=== PATIENT | female | born 1955 | race American Indian/Alaskan Native ===

== ENCOUNTER 2021-11-14 11:30 | Emergency (ER) | payer SELFPAY ==
[2021-11-14 12:35] VITALS: BP 137/76
--- NOTE | 2021-11-14 13:44 | XRay Report ---
Left ankle-3 views Left foot-3 views INDICATION: ankle injury. COMPARISON: None available. IMPRESSION: No acute osseous abnormality in the ankle or foot. Normal alignment. There is moderate soft tissue swelling predominantly along the dorsum of the forefoot and midfoot with no soft tissue w ound identified. Mild scattered degenerative changes are present throughout the foot and ankle and t here is bulky enthesopathic change along the distal Achilles insertion at the calcaneus. Signer Name: Phil Harris MD Signed: 11/14/2021 1:39 PM Workstation Name: [id number]
--- NOTE | 2021-11-14 14:47 | Emergency Department Report ---
ED Lower Extremity HPI - General Chief Complaint: Extremity Injury, Lower Stated Complaint: LT FOOT PAIN Time Seen by Provider: 11/14/21 13:35 Source: patient Mode of arrival: Ambulatory Limitations: No Limitations - History of Present Illness Initial Comments: This is a 66-year-old female nontoxic, well nourished in appearance, no acute signs of distress presents to the ED with c/o of left ankle pain 1 day. Patient stated that she twisted it while walking. Patient denies any other injuries or trauma. Patient denies any numbness, tingling, fever, chills, nausea, vomiting, chest pain, shortness of breath, headache, stiff neck. Patient denies any joint swelling or joint redness. Patient denies decreased range of motion. Patient stated has decreased gait due to pain. Patient denies any allergies. MD Complaint: ankle injury -: days(s) Injury: Ankle: Left Severity: mild Severity scale (0 -10): 3 Improves With: immobilization Worsens With: weight bearing, movement, palpation Associated Symptoms: swelling, able to partially bear weight. denies: snap/pop sensation, numbness, tingling, unable to bear weight - Related Data Allergies Allergy/AdvReac Type Severity Reaction Status Date / Time No Known Allergies Allergy Verified 11/14/21 12:29 ED Review of Systems ROS: Stated complaint: LT FOOT PAIN Other details as noted in HPI Comment: All other systems reviewed and negative Constitutional: denies: chills, fever Eyes: denies: eye pain, eye discharge, vision change ENT: denies: ear pain, throat pain Respiratory: denies: cough, shortness of breath, wheezing Cardiovascular: denies: chest pain, palpitations Endocrine: no symptoms reported Gastrointestinal: denies: abdominal pain, nausea, diarrhea Genitourinary: denies: urgency, dysuria, discharge Musculoskeletal: denies: back pain, joint swelling, arthralgia Skin: denies: rash, lesions Neurological: denies: headache, weakness, paresthesias Psychiatric: denies: anxiety, depression Hematological/Lymphatic: denies: easy bleeding, easy bruising ED Past Medical Hx - Past Medical History Previous Medical History?: No - Surgical History Past Surgical History?: No ED Physical Exam - General Limitations: No Limitations General appearance: alert, in no apparent distress - Head Head exam: Present: atraumatic, normocephalic - Eye Eye exam: Present: normal appearance - Neck Neck exam: Present: normal inspection, full ROM - Respiratory Respiratory exam: Absent: respiratory distress - Cardiovascular Cardiovascular Exam: Present: regular rate - Extremities Exam Extremities exam: Present: full ROM, tenderness, normal capillary refill. Absent: pedal edema, joint swelling, calf tenderness - Expanded Lower Extremity Exam Left Hip exam: Present: normal inspection, full ROM. Absent: tenderness, swelling Upper Leg exam: Present: normal inspection, full ROM. Absent: tenderness, swelling Knee exam: Present: normal inspection, full ROM. Absent: tenderness, swelling Lower Leg exam: Present: normal inspection, full ROM. Absent: tenderness, swelling Ankle exam: Present: full ROM, tenderness, swelling, ecchymosis. Absent: abrasion, laceration, deformity, crepidus, dislocation, erythema, anterior draw sign Foot/Toe exam: Present: full ROM, tenderness, swelling, ecchymosis. Absent: abrasion, laceration, deformity, crepidus, dislocation, erythema, amputation, puncture wound, foreign body, calcaneal tenderness, tenderness at base of 5th metatarsal, nail avulsion, subungual hematoma Neuro vascular tendon exam: Present: no vascular compromise Gait: Positive: observed and limited by pain - Back Exam Back exam: Present: normal inspection, full ROM - Neurological Exam Neurological exam: Present: alert, oriented X3 - Psychiatric Psychiatric exam: Present: normal affect, normal mood - Skin Skin exam: Present: warm, dry, intact, normal color. Absent: rash - Other Other exam information: Negative left Barnes test. ED Course Vital Signs 11/14/21 12:29 Temperature 98 F Pulse Rate 97 H Respiratory 16 Rate Blood Pressure 137/76 [Left] O2 Sat by Pulse 97 Oximetry - Reevaluation(s) Reevaluation #1: 11/14/21 14:55 Patient is speaking in full sentences with no signs of distress noted. ED Lower Extremity MDM - Radiology Data [facility] [address] [place] [address] XRay Report Signed Patient: HAMZAH GRACE MR#: [id number] : 1955 Acct:[id number] Age/Sex: 66 / F ADM Date: 11/14/21 Loc: ED Attending Dr: Ordering Physician: DAVID SHORE Date of Service: 11/14/21 Procedure(s): XR ankle 3+V LT Accession Number(s): [id number] cc: DAVID SHORE Fluoro Time In Minutes: Left ankle-3 views Left foot-3 views INDICATION: ankle injury. COMPARISON: None available. IMPRESSION: No acute osseous abnormality in the ankle or foot. Normal alignment. There is moderate soft tissue swelling predominantly along the dorsum of the forefoot and midfoot with no soft tissue wound identified. Mild scattered degenerative changes are present throughout the foot and ankle and there is bulky enthesopathic change along the distal Achilles insertion at the calcaneus. Signer Name: Phil Harris MD Signed: 11/14/2021 1:39 PM Workstation Name: [id number] Transcribed By: ROMEL Dictated By: Phil Harris MD Electronically Authenticated By: Phil Harris MD Signed Date/Time: 11/14/211338 DD/ 37 TD/TT: [address] [address] XRay Report Signed Patient: HAMZAH GRACE MR#: [id number] : 1955 Acct:[id number] Age/Sex: 66 / F ADM Date: 11/14/21 Loc: ED Attending Dr: Ordering Physician: DAVID SHORE Date of Service: 11/14/21 Procedure(s): XR foot 3+V LT Accession Number(s): [id number] cc: DAVID SHORE Fluoro Time In Minutes: Left ankle-3 views Left foot-3 views INDICATION: ankle injury. COMPARISON: None available. IMPRESSION: No acute osseous abnormality in the ankle or foot. Normal alignment. There is moderate soft tissue swelling predominantly along the dorsum of the forefoot and midfoot with no soft tissue wound identified. Mild scattered degenerative changes are present throughout the foot and ankle and there is bulky enthesopathic change along the distal Achilles insertion at the calcaneus. Signer Name: Phil Harris MD Signed: 11/14/2021 1:39 PM Workstation Name: [id number] Transcribed By: ROMEL Dictated By: Phil Harris MD Electronically Authenticated By: Phil Harris MD Signed Date/Time: 11/14/211338 DD/ 37 TD/TT: - Medical Decision Making This is a 66-year-old female that presents with left ankle strain with possible achilles tendon injury. Patient is stable and was examined by me. I referred patient to an orthopedic doctor for further evaluation for possible MRI. X-ray has been obtained and dictated by the radiologist. Patient is notified of the x-ray report with noted by the patient. Patient does have normal gait with some tenderness. no joint redness or swelling. Not warm to touch. No signs of cellulites present. Patient refused splint and crutches as she stated she wants to be sure of the injury before. Patient educated of my concerns and the needs for splint and cructhes but patient refused. Patient staetd she will go somewhere else and signed AMA noted. Critical care attestation.: If time is entered above; I have spent that time in minutes in the direct care of this critically ill patient, excluding procedure time. ED Disposition Clinical Impression: Left ankle injury Qualifiers: Encounter type: initial encounter Qualified Code(s): S99.912A - Unspecified injury of left ankle, initial encounter Achilles tendon injury Qualifiers: Encounter type: initial encounter Laterality: left Qualified Code(s): S86.002A - Unspecified injury of left Achilles tendon, initial encounter Disposition: 07 LEFT AWOL/ELOPED Is pt being admited?: No Does the pt Need Aspirin: No Condition: Undetermined Additional Instructions: Follow-up with a orthopedic doctor in 3-5 days or if symptoms worsen and continue return to emergency room as soon as possible. No physical activity that extremity until cleared by orthopedic doctor Referrals: MARK NUNEZ MD [Referring] - 3-5 Days JULI VÁSQUEZ MD [Staff Physician] - 3-5 Days Forms: AMA Form Time of Disposition: 15:34
== END 2021-11-14 19:07 | disposition left against medical advice (07) ==
LOC: ED 11:30
DX: S99.912A Unspecified injury of left ankle, initial encounter (principal); S86.002A Unspecified injury of left Achilles tendon, initial encounter; X58.XXXA Exposure to other specified factors, initial encounter; Y93.89 Activity, other specified; Y92.89 Other specified places as the place of occurrence of the external cause; Y99.8 Other external cause status
CPT/HCPCS: 99283